=== PATIENT | male | born 1955 | race Caucasian/White ===

== ENCOUNTER 2017-10-07 09:43 | Emergency (ER) | payer BC, MEDICAID ==
[~2017-10-07] VITALS: Ht 180.3 cm; Wt 88.5 kg
--- NOTE | 2017-10-07 10:25 | NUR ---
Patient discharged to home in stable conditon. Written and verbal after care instructions given. Patient verbalizes understanding of instructions. Pt walked out of ER w/ steady gait, accompained by family.
== END 2017-10-07 10:20 | disposition home or self-care (01) ==
LOC: ER 09:43
DX: S20.212A Contusion of left front wall of thorax, initial encounter (principal); F17.200 Nicotine dependence, unspecified, uncomplicated; W18.30XA Fall on same level, unspecified, initial encounter; Y93.89 Activity, other specified; Y92.89 Other specified places as the place of occurrence of the external cause; Y99.8 Other external cause status
CPT/HCPCS: 99281; A4663